=== PATIENT | male | born 1945 | race Caucasian/White ===

== ENCOUNTER 2018-05-16 13:30 | Observation (INO) ==
--- NOTE | 2018-05-16 13:38 | Emergency Department Note ---
Disposition Clinical Impression: Dyspnea, S/P CABG x 3 Disposition: Admitted As Inpatient Condition: Good General Adult HPI - General Chief complaint: ED Shortness of Breath/Dyspnea Stated complaint: INESSA/Tired Time Seen by Provider: 05/16/18 13:36 Nursing Notes Reviewed: Yes Vital Signs Reviewed: Yes - History of Present Illness Pain Scale: 0 - Related Data Home Medications Medication Instructions Recorded Confirmed Clopidogrel [Plavix] 75 mg PO DAILY 12/21/15 05/16/18 Febuxostat [Uloric] 40 mg PO DAILY 12/21/15 05/16/18 Insulin Glargine,Hum.rec.anlog 30 units SQ HS 12/21/15 05/16/18 [Lantus Solostar] LORazepam [Ativan] 0.5 mg PO TID PRN 12/21/15 05/16/18 Lisinopril [Zestril] 20 mg PO DAILY #0 12/21/15 05/16/18 Lovastatin 40 mg PO DAILY #0 12/21/15 05/16/18 Metoprolol [Lopressor] 100 mg PO BID 12/21/15 05/16/18 cloNIDine HCl [CloNIDine HCl] 0.1 mg PO DAILY PRN 12/21/15 05/16/18 Multivit-Min/FA/Lycopen/Lutein 1 each PO DAILY 02/06/16 05/16/18 [Centrum Silver Tablet] Docusate [Colace] 100 mg PO DAILY 03/31/16 05/16/18 Amlodipine Besylate 10 mg PO DAILY 08/03/17 05/16/18 Nitroglycerin [Nitrostat] 0.4 mg SL Q5M PRN 08/03/17 05/16/18 Aspirin Enteric Coated [Aspirin EC] 81 mg PO DAILY 05/16/18 05/16/18 Cholecalciferol (D-3) [Vitamin D] 1,000 unit PO DAILY 05/16/18 05/16/18 Colchicine [Colcrys] 0.6 mg PO BID PRN 05/16/18 05/16/18 Allergies Allergy/AdvReac Type Severity Reaction Status Date / Time allopurinol AdvReac Anxiety Verified 05/16/18 13:33 Amoxicillin AdvReac Anxiety Verified 05/16/18 13:33 atorvastatin [From Lipitor] AdvReac Muscle Pain Verified 05/16/18 13:33 levofloxacin AdvReac Anxiety Verified 05/16/18 13:33 rosuvastatin [From Crestor] AdvReac Muscle Pain Verified 05/16/18 13:33 tramadol AdvReac Anxiety Verified 05/16/18 13:33 Past Medical History - Past Medical History Medical history: Reports: diabetes, hypertension, renal disease, other Surgical history: Reports: angioplasty/stent, carotid endarterectomy, cataract, coronary bypass (CABG), other Psychiatric history: Reports: no psych history - Social History Smoking Status: Never smoker Smokeless Tobacco Status: No Alcohol use: Reports: rarely Drug use: Reports: none Course Vital Signs Temperature 97.4 F L 05/16/18 13:32 Pulse Rate 66 05/16/18 13:32 Respiratory Rate 18 05/16/18 13:32 Blood Pressure 174/72 05/16/18 13:32 O2 Sat by Pulse Oximetry 98 05/16/18 13:32 Temperature 97.4 F L 05/16/18 13:38 Pulse Rate 60 05/16/18 15:23 Respiratory Rate 16 05/16/18 15:23 Blood Pressure 125/63 05/16/18 15:23 O2 Sat by Pulse Oximetry 98 05/16/18 15:23 Oxygen Delivery Oxygen Delivery Room Air Medical Decision Making - MDM Narrative Medical decision making narrative: This documentation is done with the assistance of Dragon dictation. Despite efforts made to ensure accuracy, there may be inaccuracies in card scraper or spelling and typographical errors. I examined this patient and my medical decision-making was reviewed with the Resident Physician. I agree with the documented findings, disposition and treatment plan as described except to the extent set forth below. Patient seen and evaluated on arrival with Dr. Pak and myself, I agree with her evaluation and management plan, I supervised care the patient's stay. She presents today with dyspnea and symptoms of congestive heart failure. More tired than usual also hypertensive [facility] and they sent him here. We will order a workup and most likely admission. Chest X-Ray 05/16/18 13:40 IMPRESSION: No acute process. D/ / Joaquim Rasheed MD / Joaquim Rasheed MD Interpreting Provider: Joaquim Rasheed MD 1600 hrs. were negative and bring her into the hospital for dyspnea and pulmonary edema. - Lab Data Result diagrams: 05/16/18 13:53 05/16/18 13:53 Lab Results 05/16/18 05/16/18 05/16/18 Range/Units 13:53 13:53 13:53 WBC 6.7 (4.3-11.1) K/mcL RBC 4.02 L (4.19-5.50) M/mcL Hgb 12.8 L (12.9-16.9) g/dL Hct 36.7 L (37.5-50.1) % MCV 91.3 (83.0-100.0) fL MCH 31.8 (28.0-33.3) pg MCHC 34.9 (31.6-35.5) g/dL RDW 13.3 (11.5-14.5) % Plt Count 190 (140-400) K/mcL MPV 9.7 (9.4-12.4) fL Immature Gran % 0.6 (0-4) % Seg Neutrophils % 65.6 % Lymphocytes % 20.9 % Monocytes % 10.8 % Eosinophils % 1.5 % Basophils % 0.6 % Neutrophils # 4.4 (1.6-8.9) K/mcL Lymphocytes # 1.4 (0.6-4.6) K/mcL Monocytes # 0.7 (0.0-1.3) K/mcL Eosinophils # 0.1 (0.0-0.6) K/mcL Basophils # 0.0 (0.0-0.2) K/mcL Sodium 130 L (136-145) mEq/L Potassium 4.9 (3.5-5.1) mEq/L Chloride 98 (98-107) mEq/L Carbon Dioxide 25 (23-29) mEq/L BUN 23 (8-23) mg/dL Creatinine 1.48 H (0.70-1.30) mg/dL Est GFR ( Amer) 56 L (> 60) Est GFR (Non-Af Amer) 47 L (> 60) BUN/Creatinine Ratio 16 (6-26) Glucose 211 H (70-105) mg/dL Calculated Osmolality 280 (280-300) Calcium 9.7 (8.6-10.3) mg/dL Troponin I < 0.03 (< 0.04) ng/mL B-Natriuretic Peptide 209 H (Less than 100) pg/mL Attestation Statement - Attestation Attestation: This documentation is done with the assistance of Dragon dictation. Despite efforts made to ensure accuracy, there may be inaccuracies in card scraper or spelling and typographical errors. I examined this patient and my medical decision-making was reviewed with the Resident Physician. I agree with the documented findings, disposition and treatment plan as described except to the extent set forth below.
--- NOTE | 2018-05-16 13:46 | Emergency Department Note ---
Disposition Clinical Impression: S/P CABG x 3 Dyspnea Qualifiers: Dyspnea type: unspecified Qualified Code(s): R06.00 - Dyspnea, unspecified Disposition: Admitted As Inpatient Condition: Good Referrals: Richard Kasper MD [Primary Care Provider] - Forms: ED Satisfaction Letter Time of Disposition: 15:33 General Adult HPI - General Chief complaint: ED Shortness of Breath/Dyspnea Stated complaint: INESSA/Tired Time Seen by Provider: 05/16/18 13:36 Source: patient Mode of arrival: ambulatory Limitations: no limitations Nursing Notes Reviewed: Yes Vital Signs Reviewed: Yes - History of Present Illness HPI Narrative: 72-year-old male with significant past medical history of chronic kidney disease , diabetes, hypertension, hyperlipidemia presented to the emergency part chief complaint of difficulty in breathing. Patient has no history of asthma or COPD. Patient states for the past month he is not having increased difficulty in breathing. At first it was only exertional and now it is even at rest at times. Patient denies any fevers or chest pain. Patient does have a history of bypass in March 2016. Patient states today he went to his nephrologists office and she was concerned for his increased difficulty in breathing and sent him here for further evaluation. Pain Scale: 0 - Related Data Home Medications Medication Instructions Recorded Confirmed Clopidogrel [Plavix] 75 mg PO DAILY 12/21/15 05/16/18 Febuxostat [Uloric] 40 mg PO DAILY 12/21/15 05/16/18 Insulin Glargine,Hum.rec.anlog 30 units SQ HS 12/21/15 05/16/18 [Lantus Solostar] LORazepam [Ativan] 0.5 mg PO TID PRN 12/21/15 05/16/18 Lisinopril [Zestril] 20 mg PO DAILY #0 12/21/15 05/16/18 Lovastatin 40 mg PO DAILY #0 12/21/15 05/16/18 Metoprolol [Lopressor] 100 mg PO BID 12/21/15 05/16/18 cloNIDine HCl [CloNIDine HCl] 0.1 mg PO DAILY PRN 12/21/15 05/16/18 Multivit-Min/FA/Lycopen/Lutein 1 each PO DAILY 02/06/16 05/16/18 [Centrum Silver Tablet] Docusate [Colace] 100 mg PO DAILY 03/31/16 05/16/18 Amlodipine Besylate 10 mg PO DAILY 08/03/17 05/16/18 Nitroglycerin [Nitrostat] 0.4 mg SL Q5M PRN 08/03/17 05/16/18 Aspirin Enteric Coated [Aspirin EC] 81 mg PO DAILY 05/16/18 05/16/18 Cholecalciferol (D-3) [Vitamin D] 1,000 unit PO DAILY 05/16/18 05/16/18 Colchicine [Colcrys] 0.6 mg PO BID PRN 05/16/18 05/16/18 Allergies Allergy/AdvReac Type Severity Reaction Status Date / Time allopurinol AdvReac Anxiety Verified 05/16/18 13:33 Amoxicillin AdvReac Anxiety Verified 05/16/18 13:33 atorvastatin [From Lipitor] AdvReac Muscle Pain Verified 05/16/18 13:33 levofloxacin AdvReac Anxiety Verified 05/16/18 13:33 rosuvastatin [From Crestor] AdvReac Muscle Pain Verified 05/16/18 13:33 tramadol AdvReac Anxiety Verified 05/16/18 13:33 All systems ED: reviewed and negative except as stated. Constitutional: Denies: fever, chills Eyes: Reports: as per HPI ENT ED: Reports: as per HPI Cardiovascular: Denies: chest pain, palpitations Respiratory: Reports: dyspnea. Denies: cough, wheezes, hemoptysis Gastrointestinal: Denies: abdominal pain, nausea, vomiting Genitourinary: Reports: as per HPI Musculoskeletal: Reports: as per HPI Integumentary: Denies: rash, abrasion Neurological: Denies: weakness, numbness, paresthesias Psychiatric: Reports: as per HPI Endocrine: Reports: as per HPI Hematological/Lymphatic: Reports: as per HPI Allergic/Immunologic: Reports: as per HPI Past Medical History - Past Medical History Attestation: Yes The following information was validated with the patient. Medical history: Reports: diabetes, hypertension, renal disease, other Surgical history: Reports: angioplasty/stent, carotid endarterectomy, cataract, coronary bypass (CABG), other Psychiatric history: Reports: no psych history - Social History Smoking Status: Never smoker Smokeless Tobacco Status: No Alcohol use: Reports: rarely Drug use: Reports: none Physical Exam - General Limitations: no limitations General appearance: alert, in no apparent distress - Head Head exam: atraumatic, normocephalic, normal inspection - Eye Eye exam: Present: normal appearance. Absent: scleral icterus, conjunctival injection - ENT ENT exam: normal exam, mucous membranes moist - Neck Neck exam: Present: normal inspection, full ROM. Absent: tenderness, meningismus - Chest Chest inspection: Present: normal inspection, symmetric chest wall rise. Absent : tenderness, rash - Respiratory Respiratory exam: Present: normal lung sounds bilaterally. Absent: respiratory distress, wheezes - Cardiovascular Cardiovascular exam: Present: regular rate, normal rhythm, normal heart sounds - Abdominal Exam Abdominal exam: Present: soft, Non-Tender. Absent: distention, guarding, rebound - Extremities Exam Extremities exam: Present: normal inspection, full ROM - Neurological Exam Neurological exam: Present: alert, oriented X3 - Psychiatric Psychiatric exam: Present: normal affect, normal mood - Skin Skin exam: Present: warm, intact Course Course Narrative: 72-year-old male coming in with chief complaint of difficulty in breathing. Progressive for the past month. Patient has cardiac history. Patient's physical exam benign. He is alert and oriented times3 in the room with stable vital signs. We will perform cardiac workup along with chest x-ray. We will obtain an EKG and troponin. Disposition most likely admission but pending results. Patient agrees with this plan. - Reevaluation(s) Reevaluation #1: Patient's laboratory analysis benign. Due to the patient's elevated heart score an increase in difficulty breathing over the past few days we will plan to admit him for further evaluation. Patient is alert and oriented 3 and room with stable vital signs. He agrees with this plan. I spoke with the hospitalist on-call Dr. Sal who agrees to accept the patient at this time. Vital Signs Temperature 97.4 F L 05/16/18 13:32 Pulse Rate 66 05/16/18 13:32 Respiratory Rate 18 05/16/18 13:32 Blood Pressure 174/72 05/16/18 13:32 O2 Sat by Pulse Oximetry 98 05/16/18 13:32 Temperature 97.4 F L 05/16/18 13:38 Pulse Rate 60 05/16/18 15:23 Respiratory Rate 16 05/16/18 15:23 Blood Pressure 125/63 05/16/18 15:23 O2 Sat by Pulse Oximetry 98 05/16/18 15:23 Oxygen Delivery Oxygen Delivery Room Air Medical Decision Making - Lab Data Result diagrams: 05/16/18 13:53 05/16/18 13:53 Lab Results 05/16/18 05/16/18 05/16/18 Range/Units 13:53 13:53 13:53 WBC 6.7 (4.3-11.1) K/mcL RBC 4.02 L (4.19-5.50) M/mcL Hgb 12.8 L (12.9-16.9) g/dL Hct 36.7 L (37.5-50.1) % MCV 91.3 (83.0-100.0) fL MCH 31.8 (28.0-33.3) pg MCHC 34.9 (31.6-35.5) g/dL RDW 13.3 (11.5-14.5) % Plt Count 190 (140-400) K/mcL MPV 9.7 (9.4-12.4) fL Immature Gran % 0.6 (0-4) % Seg Neutrophils % 65.6 % Lymphocytes % 20.9 % Monocytes % 10.8 % Eosinophils % 1.5 % Basophils % 0.6 % Neutrophils # 4.4 (1.6-8.9) K/mcL Lymphocytes # 1.4 (0.6-4.6) K/mcL Monocytes # 0.7 (0.0-1.3) K/mcL Eosinophils # 0.1 (0.0-0.6) K/mcL Basophils # 0.0 (0.0-0.2) K/mcL Sodium 130 L (136-145) mEq/L Potassium 4.9 (3.5-5.1) mEq/L Chloride 98 (98-107) mEq/L Carbon Dioxide 25 (23-29) mEq/L BUN 23 (8-23) mg/dL Creatinine 1.48 H (0.70-1.30) mg/dL Est GFR ( Amer) 56 L (> 60) Est GFR (Non-Af Amer) 47 L (> 60) BUN/Creatinine Ratio 16 (6-26) Glucose 211 H (70-105) mg/dL Calculated Osmolality 280 (280-300) Calcium 9.7 (8.6-10.3) mg/dL Troponin I < 0.03 (< 0.04) ng/mL B-Natriuretic Peptide 209 H (Less than 100) pg/mL - EKG Data EKG #1 EKG attestation: Yes I reviewed and interpreted this EKG. EKG results narrative: Sinus rhythm first-degree AV block. 60 beats for minute. IN interval 304, QRS 94, QTC 404. No signs of acute ST segment elevation or ischemia. Compared to previous EKG completed on 12/14/2017 no significant changes noted.
[2018-05-16 14:09] LABS: Basophils % 0.6 %; Eosinophils # 0.1 K/mcL (0.0-0.6); Eosinophils % 1.5 %; Hematocrit 36.7 % (37.5-50.1); Hemoglobin 12.8 g/dL (12.9-16.9); Immature Granulocytes % 0.6 % (0-4); Lymphocytes # 1.4 K/mcL (0.6-4.6); Lymphocytes % 20.9 %; Mean Corpuscular HGB Conc 34.9 g/dL (31.6-35.5); Mean Corpuscular Hemoglobin 31.8 pg (28.0-33.3); Mean Corpuscular Volume 91.3 fL (83.0-100.0); Mean Platelet Volume 9.7 fL (9.4-12.4); Monocytes # 0.7 K/mcL (0.0-1.3); Monocytes % 10.8 %; Neutrophils # 4.4 K/mcL (1.6-8.9); Platelet Count 190 K/mcL (140-400); Red Blood Count 4.02 M/mcL (4.19-5.50); Red Cell Distribution Width 13.3 % (11.5-14.5); Segmented Neutrophils % 65.6 %
[2018-05-16 14:24] LABS: BUN/Creatinine Ratio 16 (6-26); Blood Urea Nitrogen 23 mg/dL (8-23); Calcium 9.7 mg/dL (8.6-10.3); Carbon Dioxide 25 mEq/L (23-29); Chloride 98 mEq/L (98-107); Glucose 211 mg/dL (70-105); Osmolality,Calculated 280 (280-300); Potassium 4.9 mEq/L (3.5-5.1); Sodium 130 mEq/L (136-145); eGFR For Non-African Americans 47 (> 60)
[2018-05-16 14:25] LABS: Troponin I < 0.03 ng/mL (< 0.04)
[2018-05-16] MEDS ORDERED: Acetaminophen 325 MG TABLET PO PRN (16:15)
[2018-05-16] MEDS ORDERED: Naloxone 0.4 MG/ML INJ IVP PRN (16:15)
[2018-05-16] MEDS ORDERED: traMADol 50 MG TABLET PO PRN (16:15)
[2018-05-16] MEDS ORDERED: Colchicine 0.6 MG TABLET PO PRN (16:29)
[2018-05-16] MEDS ORDERED: *HR* LORazepam 0.5 MG TABLET PO PRN (16:29)
[2018-05-16] MEDS ORDERED: cloNIDine HCl 0.1 MG TABLET PO PRN (16:29)
[2018-05-16] MEDS ORDERED: Nitroglycerin 0.4 MG TAB.SUBL SL PRN (16:29)
[2018-05-16] MEDS ORDERED: Dextrose Gel 15 GM/37.5 ML TUBE PO PRN ×2 (16:31)
[2018-05-16] MEDS ORDERED: D5% in Water 1,000 ML IVC PRN (16:31)
[2018-05-16] MEDS ORDERED: *HR* Dextrose 50 % in Water (Syg) 50 ML SYRINGE IVP PRN (16:31)
--- NOTE | 2018-05-16 16:44 | Internal Med History&Physical ---
<Gita Hawkins - Last Filed: 05/16/18 16:38> Date of Encounter: 05/16/18 Time of Encounter: 16:38 Internal Medicine - H&P: HPI Admitted From: Home Plans for Post Hospital Care: Home History of present illness: Mr. Yu is a 72-year-old male with significant past medical history of chronic kidney disease, diabetes, hypertension, hyperlipidemia, CAD s/p PTCA with stent and CABG presented to the emergency part chief complaint of difficulty in breathing. Patient has no history of asthma or COPD. Patient states for the past several months he was having increased difficulty in breathing. At first it was only exertional and now it is even at rest at times. Patient denies any fevers or chest pain. Patient does have a history of bypass in March 2016. Patient states today he went to his nephrologists office and she was concerned for his increased difficulty in breathing and sent him here for further evaluation. Patient denies fever, chills, or night sweats. He has no chest pain, palpitation, or syncope. At the ED, his vital signs were stable although episodic high blood pressure was noticed. Labs revealed slightly elevated BNP and creatinine. Chest x-ray unremarkable. EKG revealed ST_T depression on leads I and avL, first-degree AV block. Due to his concerning symptoms, patient will be admitted as observation for further evaluation. Past Med Surg Social Fam HX - Past Medical History Medical history: diabetes, hypertension, renal disease, other Additional medical history: ckd 3 Psychiatric history: no psych history - Past Surgical History Surgical History: angioplasty/stent, carotid endarterectomy, cataract, coronary bypass (CABG), other Additional surgical history: Back surgery, cardiac stent x1, left CEA - Social History Smoking Status: Never smoker Smokeless Tobacco Status: No Alcohol use: rarely Drug use: none - Family History Father Adopted: No Family Member Ethnicity: Non- Living Status: Still Living Hx Family Cardiac Disorders: No Hx Family Respiratory Disorders: No Hx Family Cancer: Yes (grandmother bone cancer/breast) Hx Family GI Disorders: No Hx Family Endocrine Disorder: Yes (brother dm) Hx Family Neuromuscular Disorders: No Hx Family Neurologic Disorders: No Hx Family HEENT Disorders: No Hx Family Autoimmune Disorders: No Internal Medicine - H&P: Meds Clopidogrel [Plavix] 75 mg PO DAILY 12/21/15 [History] Febuxostat [Uloric] 40 mg PO DAILY 12/21/15 [History] LORazepam [Ativan] 0.5 mg PO TID PRN 12/21/15 [History] Lisinopril [Zestril] 20 mg PO DAILY #0 12/21/15 [History] Lovastatin 40 mg PO DAILY #0 12/21/15 [History] Metoprolol [Lopressor] 100 mg PO BID 12/21/15 [History] cloNIDine HCl [CloNIDine HCl] 0.1 mg PO DAILY PRN 12/21/15 [History] Multivit-Min/FA/Lycopen/Lutein [Centrum Silver Tablet] 1 each PO DAILY 02/06/16 [History] Docusate [Colace] 100 mg PO DAILY 03/31/16 [History] Amlodipine Besylate 10 mg PO DAILY 08/03/17 [History] Nitroglycerin [Nitrostat] 0.4 mg SL Q5M PRN 08/03/17 [History] Aspirin Enteric Coated [Aspirin EC] 81 mg PO DAILY 05/16/18 [History] Cholecalciferol (D-3) [Vitamin D] 1,000 unit PO DAILY 05/16/18 [History] Colchicine [Colcrys] 0.6 mg PO BID PRN 05/16/18 [History] Insulin Glargine,Hum.rec.anlog [Basaglar Kwikpen U-100] 34 unit SQ DAILY [History] 3 Allergy/AdvReac Type Severity Reaction Status Date / Time allopurinol AdvReac Anxiety Verified 05/16/18 13:33 Amoxicillin AdvReac Anxiety Verified 05/16/18 13:33 atorvastatin [From Lipitor] AdvReac Muscle Pain Verified 05/16/18 13:33 levofloxacin AdvReac Anxiety Verified 05/16/18 13:33 rosuvastatin [From Crestor] AdvReac Muscle Pain Verified 05/16/18 13:33 tramadol AdvReac Anxiety Verified 05/16/18 13:33 All Systems PM: A 10-system review of systems was performed and is negative for pertinent findings except as documented above in the HPI. Review of systems: REVIEW OF SYSTEMS: CONSTITUTIONAL: No weight loss, fever, chills, weakness or fatigue. HEENT: Eyes: No visual loss, blurred vision, double vision or yellow sclerae. Ears, Nose, Throat: No hearing loss, sneezing, congestion, runny nose or sore throat. SKIN: No rash or itching. CARDIOVASCULAR: see HPI. RESPIRATORY: No shortness of breath, cough or sputum. GASTROINTESTINAL: No anorexia, nausea, vomiting or diarrhea. No abdominal pain or blood. GENITOURINARY: No dysuria, urgency, or frequency. NEUROLOGICAL: No headache, dizziness, syncope, paralysis, ataxia, numbness or tingling in the extremities. No change in bowel or bladder control. MUSCULOSKELETAL: No muscle, back pain, joint pain or stiffness. HEMATOLOGIC: No anemia, bleeding or bruising. LYMPHATICS: No enlarged nodes. No history of splenectomy. PSYCHIATRIC: No history of depression or anxiety. ENDOCRINOLOGIC: No reports of sweating, cold or heat intolerance. No polyuria or polydipsia. - Constitutional Vitals: Temp Pulse Resp BP Pulse Ox 97.4 F L 60 16 125/63 98 05/16/18 13:38 05/16/18 15:23 05/16/18 15:23 05/16/18 15:23 05/16/18 15:23 General appearance: Present: A&O X 3 Exam: PHYSICAL EXAMINATION: GENERAL APPEARANCE: The patient is alert, oriented and in no acute distress. HEENT: Head is normocephalic. The sinuses are nontender. Pupils are equal and reactive. The nares are patent. Oropharynx clear without lesions. NECK: Supple without lymphadenopathy. HEART: Regular rate and rhythm. LUNGS: No crackles or wheezes are heard. ABDOMEN: Soft, nontender, nondistended with good bowel sounds heard. Inguinal area is normal. EXTREMITIES: Without cyanosis, clubbing or edema. NEUROLOGICAL: Gross nonfocal. SKIN: Warm and dry without any rash. Internal Med - H&P Results - Labs CBC & Chem 7: 05/16/18 13:53 05/16/18 13:53 - Assessment and plan (1) Dyspnea Current Visit: Yes Status: Acute Assessment and plan: 72-year-old male with past medical history of CAD status post stent and CABG, CK D, hypertension, hyperlipidemia, and diabetes presented with several months history of generalized weakness and dyspnea. He had extensive cardiac history including several times of PCI with stent and CABG. last LHC in 2016 revealed patent three-vessel bypass grafts. Stress test in 2016 negative for ischemia. His recent echo in 12/2017 revealed preserved ejection fraction. She does not have history of COPD/asthma/other underlying pulmonary disease. - Etiology undetermined at this point. Chest x-ray normal. - BNP slightly elevated, however, patient is not volume overloaded on physical exam. HR 60, EKG first-degree AV block, ST-T depression in I and avL. troponin negative. Recent echo in December revealed preserved ejection fraction, no reported diastolic dysfunction, no valvular disease. Given history of extensive cardiac disease, heart failure either HFrEF or HFpEF was suspected. We will repeat stress echocardiogram in the morning. stress test if indicated. Consult cardiology. - We will ruled out endocrine/metabolic disorders including hypothyroidism, vitamin B-12 deficiency. Vitamin D level was normal in April. A1c 7.5 in April. Qualifiers: Dyspnea type: unspecified Qualified Code(s): R06.00 - Dyspnea, unspecified (2) CAD (coronary artery disease) Current Visit: No Status: Chronic Assessment and plan: - same as above, may need stress test to rule out ischemia given the abnormality on EKG. - continue asa and Plavix. continue BB and ACEI. Qualifiers: Coronary Disease-Associated Artery/Lesion type: [place] artery [place] vs. transplanted heart: [place] heart Associated angina: with unspecified angina Qualified Code(s): I25.119 - Atherosclerotic heart disease of [place] coronary artery with unspecified angina pectoris (3) CKD (chronic kidney disease) stage 3, GFR 30-59 ml/min Current Visit: No Status: Chronic Assessment and plan: Creatinine at baseline, avoid nephrotoxic agent, continue monitoring. (4) DMII (diabetes mellitus, type 2) Current Visit: No Status: Chronic Assessment and plan: Recent A1c 7.5, continue home basal insulin, started on SSI. Qualifiers: Diabetes mellitus chcf insulin use: unspecified chcf insulin use status Diabetes mellitus complication status: with circulatory complication Diabetes mellitus complication detail: with peripheral angiopathy without gangrene Qualified Code(s): E11.51 - Type 2 diabetes mellitus with diabetic peripheral angiopathy without gangrene (5) Hyperlipidemia Current Visit: Yes Status: Acute Assessment and plan: continue satins. Qualifiers: Hyperlipidemia type: pure hypercholesterolemia Qualified Code(s): E78.00 - Pure hypercholesterolemia, unspecified; E78.0 - Pure hypercholesterolemia (6) Hypertension Current Visit: No Status: Chronic Assessment and plan: Very labile BP, may decrease BB dose due to weakness and I degree AVB. Qualifiers: Hypertension type: essential hypertension Qualified Code(s): I10 - Essential (primary) hypertension (7) DVT prophylaxis Current Visit: Yes Status: Acute Assessment and plan: heparin sq. (8) Gout Current Visit: No Status: Chronic Assessment and plan: Uric acid recent 6.0, continue febuxostat and clchcine. Qualifiers: Gout site: unspecified site Gout etiology: unspecified cause Chronicity: chronic Presence of tophus: without tophus Qualified Code(s): M1A.9XX0 - Chronic gout, unspecified, without tophus (tophi) - Time Spent With Patient Total time spent is greater than 50% in coordination of care (as documented) at patient's floor/unit and/or counseling patient: Greater than 35 minutes <Alistair Sal - Last Filed: 05/16/18 20:31> Date of Encounter: 05/16/18 Internal Medicine - H&P: HPI History of present illness: Mr. Yu is a 72 year old male Past Med Surg Social Fam HX - Family History Father Adopted: No Family Member Ethnicity: Non- Living Status: Still Living Age at : 70 Hx Family Cardiac Disorders: No Hx Family Respiratory Disorders: No Hx Family Cancer: Yes (grandmother bone cancer/breast) Hx Family GI Disorders: No Hx Family Endocrine Disorder: Yes (brother dm) Hx Family Neuromuscular Disorders: No Hx Family Neurologic Disorders: No Hx Family HEENT Disorders: No Hx Family Autoimmune Disorders: No Mother Living Status: Hx Family Respiratory Disorders: Yes (TB) All Systems PM: A 10-system review of systems was performed and is negative for pertinent findings except as documented above in the HPI. - Constitutional Vitals: Temp Pulse Resp BP Pulse Ox 97.6 F 63 16 146/72 99 05/16/18 18:44 05/16/18 18:44 05/16/18 18:44 05/16/18 18:44 05/16/18 18:44 Internal Med - H&P Results - Labs CBC & Chem 7: 05/16/18 13:53 05/16/18 13:53 Labs: Cardiac Enzymes 05/16/18 Range/Units 19:12 Troponin I < 0.03 (< 0.04) ng/mL - Attending Attestation Discussed with CARROLL and agree with assessment and plan as above Consult cardiology for management of heart failure - Assessment and plan (1) CKD (chronic kidney disease) stage 3, GFR 30-59 ml/min Current Visit: No Status: Chronic (2) CAD (coronary artery disease) Current Visit: No Status: Chronic Qualifiers: Coronary Disease-Associated Artery/Lesion type: [place] artery [place] vs. 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 Diabetes mellitus complication status: with circulatory complication Diabetes mellitus complication detail: with peripheral angiopathy without gangrene Qualified Code(s): E11.51 - Type 2 diabetes mellitus with diabetic peripheral angiopathy without gangrene (4) DVT prophylaxis Current Visit: Yes Status: Acute (5) Hypertension Current Visit: No Status: Chronic Qualifiers: Hypertension type: essential hypertension Qualified Code(s): I10 - Essential (primary) hypertension (6) Dyspnea Current Visit: Yes Status: Acute Qualifiers: Dyspnea type: unspecified Qualified Code(s): R06.00 - Dyspnea, unspecified (7) Hyperlipidemia Current Visit: Yes Status: Acute Qualifiers: Hyperlipidemia type: pure hypercholesterolemia Qualified Code(s): E78.00 - Pure hypercholesterolemia, unspecified; E78.0 - Pure hypercholesterolemia (8) Gout Current Visit: No Status: Chronic Qualifiers: Gout site: unspecified site Gout etiology: unspecified cause Chronicity: chronic Presence of tophus: without tophus Qualified Code(s): M1A.9XX0 - Chronic gout, unspecified, without tophus (tophi) - Time Spent With Patient Total time spent is greater than 50% in coordination of care (as documented) at patient's floor/unit and/or counseling patient:
[2018-05-16] MEDS: *HR* Heparin 5,000 UNIT/ML VIAL SQ SCH (17:54)
[2018-05-16] MEDS ORDERED: Insulin DETEMIR 100 UNIT/ML X5UNITS SQ SCH (21:00)
[2018-05-16] MEDS: Insulin LISPRO 300 UNITS/3 ML VIAL SQ SCH (21:17)
[2018-05-17 02:18] LABS: Basophils % 0.7 %; Eosinophils # 0.2 K/mcL (0.0-0.6); Eosinophils % 2.6 %; Hematocrit 36.7 % (37.5-50.1); Hemoglobin 12.8 g/dL (12.9-16.9); Immature Granulocytes % 0.7 % (0-4); Lymphocytes # 1.6 K/mcL (0.6-4.6); Lymphocytes % 25.9 %; Mean Corpuscular HGB Conc 34.9 g/dL (31.6-35.5); Mean Corpuscular Hemoglobin 32.3 pg (28.0-33.3); Mean Corpuscular Volume 92.7 fL (83.0-100.0); Mean Platelet Volume 9.8 fL (9.4-12.4); Monocytes # 0.8 K/mcL (0.0-1.3); Neutrophils # 3.5 K/mcL (1.6-8.9); Platelet Count 182 K/mcL (140-400); Red Blood Count 3.96 M/mcL (4.19-5.50); Red Cell Distribution Width 13.2 % (11.5-14.5); Segmented Neutrophils % 57.1 %
[2018-05-17 02:33] LABS: Magnesium 1.9 mg/dL (1.6-2.6); Phosphorous 3.7 mg/dL (2.7-4.5)
[2018-05-17 02:34] LABS: Albumin/Globulin Ratio 1.3 (1.1-2.2); Bilirubin,Total 0.6 mg/dL (0.3-1.0); Calcium 9.6 mg/dL (8.6-10.3); Potassium 4.2 mEq/L (3.5-5.1)
[2018-05-17 02:59] LABS: Vitamin B12 437 pg/mL (250-1100)
[2018-05-17 03:05] LABS: Folate > 22.3 ng/mL (3.0-16.0)
[2018-05-17] MEDS: *HR* Heparin 5,000 UNIT/ML VIAL SQ SCH ×2 (06:19→17:54)
[2018-05-17] MEDS: Insulin DETEMIR 100 UNIT/ML X5UNITS SQ SCH (06:28)
--- NOTE | 2018-05-17 07:13 | Electrocardiograph Report ---
[facility] Test Date: 2018-05-16 Pat Name: Fahad Yu Department: 104 Room: 3B32 Gender: M Tool Maintenance Technician: RITA : [id number] Requested By: Galen Solorzano Order Number: [id number] Reading MD: Bob Grimm Measurements Intervals [place] Rate: 63 P: 33 [place]: 304 QRS: 87 QRSD: 94 T: 71 QT: 398 QTc: 404 Interpretive Statements SINUS RHYTHM WITH FIRST DEGREE AV BLOCK NONSPECIFIC ST & T-WAVE ABNORMALITY Electronically Signed On 05-17-2018 7:11:35 EDT by Bob Grimm
[2018-05-17] MEDS: Aspirin Enteric Coated 81 MG Tablet PO SCH (08:28)
[2018-05-17] MEDS: Insulin LISPRO 300 UNITS/3 ML VIAL SQ SCH ×4 (08:28→21:40)
[2018-05-17] MEDS: Cholecalciferol (D-3) 1,000 UNIT TABLET PO SCH (08:30)
[2018-05-17] MEDS: Multivit/Ca/Min/Fe/FA 1 TAB TABLET PO SCH (08:30)
[2018-05-17] MEDS ORDERED: Regadenoson 0.4 MG/5 ML SYRINGE IVP ONE (09:18)
[2018-05-17] MEDS: Lisinopril 20 MG TABLET PO SCH (11:33)
[2018-05-17] MEDS: amLODIPine 5 MG TABLET PO SCH (11:33)
[2018-05-17] MEDS: (Febuxostat [Uloric] 40 MG) PO SCH (11:34)
--- NOTE | 2018-05-17 15:45 | Discharge Summary ---
- NOTES TO OUTPATIENT PROVIDER Notes to Outpatient Provider: Exertional dyspnea, lack of energy. ACS ruled out , no metabolic abnormality; outpatient Cardiology f/up; Orders not resulted at time of discharge: Pending orders 05/17/18 08:04 NM roderick perf SPECT multi [NM] Routine EV limited echocardiogram Routine Date of Encounter: 05/17/18 Time of Encounter: 15:43 - Discharge Diagnosis (1) Dyspnea Priority: Primary Status: Acute Qualifiers: Dyspnea type: dyspnea on exertion Qualified Code(s): R06.09 - Other forms of dyspnea (2) CKD (chronic kidney disease) stage 3, GFR 30-59 ml/min Priority: Secondary Status: Chronic (3) CAD (coronary artery disease) Priority: Secondary Status: Chronic Qualifiers: Coronary Disease-Associated Artery/Lesion type: bypass graft [place] vs. transplanted heart: [place] heart Associated angina: with unspecified angina Qualified Code(s): I25.709 - Atherosclerosis of coronary artery bypass graft(s) , unspecified, with unspecified angina pectoris (4) DMII (diabetes mellitus, type 2) Priority: Secondary Status: Chronic Qualifiers: Diabetes mellitus jail insulin use: with jail use Diabetes mellitus complication status: with kidney complications Diabetes mellitus complication detail: with chronic kidney disease Chronic kidney disease stage : stage 3 (moderate) Qualified Code(s): E11.22 - Type 2 diabetes mellitus with diabetic chronic kidney disease; N18.3 - Chronic kidney disease, stage 3 ( moderate); 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 Yu is a 72 year old male with the above medical problems, who was admitted with fatigue, lack of energy and exertional dyspnea. Patient was admitted to rule out anginal equivalent given his extensive cardiac history. Telemetry monitoring and serial troponins were unremarkable. EKG showed nonspecific ST-T wave abnormalities, with no new changes compared to previous EKGs. Thyroid function testing, serum vitamin B12 and folate levels were normal. Patient remained hemodynamically stable. Nuclear stress test was negative for acute ischemia. TTE is pending at this time. He is stable for discharge with outpatient Cardiology f/up, after TTE results. Discharge discussed with: patient, family, nurse - Time Spent with Patient Total time spent providing and/or coordinating discharge services: Greater than 30 minutes (40 min) - Discharge Medications Home Medications: Clopidogrel [Plavix] 75 mg PO DAILY 12/21/15 [History] Febuxostat [Uloric] 40 mg PO DAILY 12/21/15 [History] LORazepam [Ativan] 0.5 mg PO TID PRN 12/21/15 [History] Lisinopril [Zestril] 20 mg PO DAILY #0 12/21/15 [History] Lovastatin 40 mg PO DAILY #0 12/21/15 [History] Metoprolol [Lopressor] 100 mg PO BID 12/21/15 [History] cloNIDine HCl [CloNIDine HCl] 0.1 mg PO DAILY PRN 12/21/15 [History] Multivit-Min/FA/Lycopen/Lutein [Centrum Silver Tablet] 1 each PO DAILY 02/06/16 [History] Docusate [Colace] 100 mg PO DAILY 03/31/16 [History] Amlodipine Besylate 10 mg PO DAILY 08/03/17 [History] Nitroglycerin [Nitrostat] 0.4 mg SL Q5M PRN 08/03/17 [History] Aspirin Enteric Coated [Aspirin EC] 81 mg PO DAILY 05/16/18 [History] Cholecalciferol (D-3) [Vitamin D] 1,000 unit PO DAILY 05/16/18 [History] Colchicine [Colcrys] 0.6 mg PO BID PRN 05/16/18 [History] Insulin Glargine,Hum.rec.anlog [Basaglar Kwikpen U-100] 34 unit SQ DAILY [History] Allergies/Adverse Reactions: 3 Allergy/AdvReac Type Severity Reaction Status Date / Time allopurinol AdvReac Anxiety Verified 05/16/18 13:33 Amoxicillin AdvReac Anxiety Verified 05/16/18 13:33 atorvastatin [From Lipitor] AdvReac Muscle Pain Verified 05/16/18 13:33 levofloxacin AdvReac Anxiety Verified 05/16/18 13:33 rosuvastatin [From Crestor] AdvReac Muscle Pain Verified 05/16/18 13:33 tramadol AdvReac Anxiety Verified 05/16/18 13:33 Date of admission: 05/16/18 15:33 Primary care physician: Richard Kasper MD Discharging clinician: Bouchra Lopez Anticipated date of discharge: 05/17/18 - Constitutional Vitals: Temp Pulse Resp BP Pulse Ox 97.7 F 62 17 151/72 99 05/17/18 11:29 05/17/18 11:29 05/17/18 11:29 05/17/18 11:29 05/17/18 11:29 General appearance: Present: A&O X 3, answers questions appropriately - Cardiovascular Cardiovascular exam: Present: RRR, +S1, +S2. Absent: diastolic murmur, gallop, rubs, systolic murmur - Patient Status Disposition: Home, Self-Care Condition: Good Functional capacity at discharge: independent ambulation Overall status at discharge: patient is progressing back to baseline - Discharge Instructions Follow Up With: Richard Kasper MD [Primary Care Provider] - 05/23/18 10:15 am Additional Instructions: F/up with Cardiology in 2-3 weeks - Diet and Activity Activity: resume usual activities as tolerated Diet: diabetic diet, low fat, low cholesterol, low salt diet
[2018-05-18] MEDS: *HR* Heparin 5,000 UNIT/ML VIAL SQ SCH (06:19)
[2018-05-18] MEDS: Insulin DETEMIR 100 UNIT/ML X5UNITS SQ SCH (06:21)
[2018-05-18 07:34] VITALS: BP 128/76
[2018-05-18] MEDS: Insulin LISPRO 300 UNITS/3 ML VIAL SQ SCH (08:49)
[2018-05-18] MEDS: Cholecalciferol (D-3) 1,000 UNIT TABLET PO SCH (08:51)
[2018-05-18] MEDS: Lisinopril 20 MG TABLET PO SCH (08:52)
[2018-05-18] MEDS: Aspirin Enteric Coated 81 MG Tablet PO SCH (08:52)
[2018-05-18] MEDS: (Febuxostat [Uloric] 40 MG) PO SCH (08:52)
[2018-05-18] MEDS: amLODIPine 5 MG TABLET PO SCH (08:52)
[2018-05-18] MEDS: Multivit/Ca/Min/Fe/FA 1 TAB TABLET PO SCH (08:52)
--- NOTE | 2018-05-18 16:00 | Internal Med Progress Note ---
Hospitalist Progress Note - Encounter Date of Encounter: 05/18/18 Time of Encounter: 10:10 - Subjective Interval History: No new complaints. Awaiting echocardiogram report for discharge. No chest pain or shortness of breath. - Exam Vitals: Temp Pulse Resp BP Pulse Ox 97.9 F 64 18 128/76 96 05/18/18 07:32 05/18/18 08:56 05/18/18 08:56 05/18/18 07:32 05/18/18 07:32 Exam: Awake, alert and oriented, answers appropriately and follows commands Extremities- full ROM, no pedal edema - Assessment and Plan (1) Dyspnea Status: Acute Assessment and Plan: Patient was admitted to rule out anginal equivalent given his extensive cardiac history. Telemetry monitoring and serial troponins were unremarkable. EKG showed nonspecific ST-T wave abnormalities, with no new changes compared to previous EKGs. Thyroid function testing, serum vitamin B12 and folate levels were normal. Nuclear stress test was negative for acute ischemia. TTE shows preserved EF, normal RV structure and function. he is stable for discharge today, with outpatient Cardiology f/up. patient and family agreeable; (2) CKD (chronic kidney disease) stage 3, GFR 30-59 ml/min Status: Chronic (3) CAD (coronary artery disease) Status: Chronic (4) DMII (diabetes mellitus, type 2) Status: Chronic (5) Hypertension Status: Chronic (6) Hyperlipidemia Status: Chronic (7) Gout Status: Chronic - Time Spent with Patient Total time spent is greater than 50% in coordination of care (as documented) at patient's floor/unit and/or counseling patient: Plan of Care Discussed with: patient Internal Medicine: Result - Labs CBC & Chem 7: 05/17/18 01:59 05/17/18 01:59 - Impressions Impressions Echocardiogram Limited Views 05/17/18 08:04 Impressions: LVEF 55-60%. Normal LV chamber size, wall thickness and function. Atypical septal motion consistent with post-operative status. Left Ventricular Wall Motion: Rest Echo Findings All wall segments showed normal motion. Findings: Study Quality * Technically adequate exam. ECG Findings * Normal sinus rhythm. Left Ventricle * LVEF 55-60%. * Normal LV chamber size, wall thickness and function. * Atypical septal motion consistent with post-operative status. Right Ventricle * Normal right ventricular structure and function. Left Atrium * Mildly dilated left atrium. Right Atrium * Mildly dilated right atrium. Consult Discharge Plan - Plan Instructions: Chest Pain (DC), Diabetes Mellitus Type 2 in Adults (DC) Additional Instructions: F/up with Cardiology in 2-3 weeks Referrals: Richard Kasper MD [Primary Care Provider] - 05/23/18 10:15 am (1) Dyspnea Qualifiers: Dyspnea type: dyspnea on exertion Qualified Code(s): R06.09 - Other forms of dyspnea (3) CAD (coronary artery disease) Qualifiers: Coronary Disease-Associated Artery/Lesion type: bypass graft [place] vs. transplanted heart: [place] heart Associated angina: with unspecified angina Qualified Code(s): I25.709 - Atherosclerosis of coronary artery bypass graft(s) , unspecified, with unspecified angina pectoris (4) DMII (diabetes mellitus, type 2) Qualifiers: Diabetes mellitus detention insulin use: with detention use Diabetes mellitus complication status: with kidney complications Diabetes mellitus complication detail: with chronic kidney disease Chronic kidney disease stage: stage 3 (moderate) Qualified Code(s): E11.22 - Type 2 diabetes mellitus with diabetic chronic kidney disease; N18.3 - Chronic kidney disease, stage 3 ( moderate); Z79.4 - [facility]FP (current) use of insulin (5) Hypertension Qualifiers: Hypertension type: essential hypertension Qualified Code(s): I10 - Essential (primary) hypertension (6) Hyperlipidemia Qualifiers: Hyperlipidemia type: unspecified Qualified Code(s): E78.5 - Hyperlipidemia, unspecified (7) Gout Qualifiers: Gout site: unspecified site Gout etiology: unspecified cause Chronicity: chronic Presence of tophus: without tophus Qualified Code(s): M1A.9XX0 - Chronic gout, unspecified, without tophus (tophi)
== END 2018-05-18 11:50 | disposition home or self-care (01) ==
LOC: EMEROO 13:30 → 3BNU 13:30 → SUATTDRO 15:33 → 3BNU 16:30
PROVIDERS: ADMIT Hospitalist; ATTEND Internal Medicine

== ENCOUNTER 2021-06-01 08:08 | Observation (INO) ==
[2021-06-01 08:57] LABS: Basophils % 0.6 %; Eosinophils # 0.2 K/mcL (0.0-0.6); Eosinophils % 2.5 %; Hematocrit 28.3 % (37.5-50.1); Hemoglobin 9.5 g/dL (12.9-16.9); Immature Granulocytes % 0.3 % (0-4); Lymphocytes # 1.5 K/mcL (0.6-4.6); Lymphocytes % 22.4 %; Mean Corpuscular HGB Conc 33.6 g/dL (31.6-35.5); Mean Corpuscular Hemoglobin 32.4 pg (28.0-33.3); Mean Corpuscular Volume 96.6 fL (83.0-100.0); Mean Platelet Volume 9.4 fL (9.4-12.4); Monocytes # 0.5 K/mcL (0.0-1.3); Monocytes % 7.8 %; Neutrophils # 4.6 K/mcL (1.6-8.9); Platelet Count 164 K/mcL (140-400); Red Blood Count 2.93 M/mcL (4.19-5.50); Red Cell Distribution Width 14.1 % (11.5-14.5); Segmented Neutrophils % 66.4 %; White Blood Count 6.9 K/mcL (4.3-11.1)
[2021-06-01 09:08] LABS: BUN/Creatinine Ratio 14 (6-26); Blood Urea Nitrogen 21 mg/dL (8-23); Carbon Dioxide 23 mEq/L (23-29); Chloride 96 mEq/L (98-107); Glucose 206 mg/dL (70-105); Osmolality,Calculated 271 (280-300); Potassium 4.4 mEq/L (3.5-5.1); Sodium 126 mEq/L (136-145); eGFR For African Americans 55 (> 60); eGFR For Non-African Americans 45 (> 60)
[2021-06-01 09:37] LABS: Troponin I < 0.03 ng/mL (< 0.04)
[2021-06-01 09:53] LABS: Adenovirus Not Detected (Not Detect); Bordetella Pertussis Not Detected (Not Detect); Chlamydophila pneumoniae Not Detected (Not Detect); Coronavirus 229E Not Detected (Not Detect); Coronavirus HKU1 Not Detected (Not Detect); Coronavirus NL63 Not Detected (Not Detect); Coronavirus OC43 Not Detected (Not Detect); Human Metapneumovirus Not Detected (Not Detect); Human Rhinovirus/Enterovirus Not Detected (Not Detect); Influenza A Subtype 2009 H1 Not Detected (Not Detect); Influenza B Not Detected (Not Detect); Mycoplasma pneumoniae Not Detected (Not Detect); Parainfluenza Virus 1 Not Detected (Not Detect); Parainfluenza Virus 2 Not Detected (Not Detect); Parainfluenza Virus 3 Not Detected (Not Detect); Parainfluenza Virus 4 Not Detected (Not Detect); Respiratory Syncytial Virus Not Detected (Not Detect); SARS-CoV-2 Not Detected (Not Detect)
[2021-06-01] MEDS ORDERED: Furosemide 20 MG/2 ML VIAL IVP ONE (10:14)
[2021-06-01 10:23] LABS: Calcium 9.2 mg/dL (8.6-10.3)
[2021-06-01 10:44] LABS: Bilirubin,Urine Negative (Negative); Blood,Urine Negative (Negative); Clarity,Urine Clear (Clear); Color,Urine Light-Yellow (Yellow); Glucose,Urine (UA) Normal (Normal); Ketones,Urine Negative (Negative); Leukocyte Esterase,Urine Negative (Negative); Nitrite,Urine Negative (Negative); PH,Urine 5.5 pH Units (5.0-8.0); Protein,Urine Trace mg/dL (Neg-Trace); Specific Gravity,Urine 1.014 (1.010-1.025); Urobilinogen,Urine Normal (Normal)
[2021-06-01] MEDS ORDERED: Naloxone 0.4 MG/ML INJ IVP PRN (11:39)
[2021-06-01] MEDS ORDERED: Acetaminophen 325 MG TABLET PO PRN (11:39)
[2021-06-01] MEDS ORDERED: Ondansetron 4 MG/2 ML VIAL IVP PRN (11:39)
[2021-06-01] MEDS ORDERED: Perflutren Lipid Microsphere 1.3 ML in 0.9 % Sodium Chloride 8.7 ML IVP PRN (11:49)
[2021-06-01] MEDS ORDERED: Nitroglycerin 0.4 MG TAB.SUBL SL PRN (11:51)
[2021-06-01] MEDS ORDERED: D5% in Water 1,000 ML IVC PRN (11:59)
[2021-06-01] MEDS ORDERED: *HR* Dextrose 50 % in Water (Vial) 50 ML VIAL IVP PRN (11:59)
[2021-06-01] MEDS ORDERED: Dextrose Gel 15 GM/37.5 ML TUBE PO PRN ×2 (11:59)
[2021-06-01 13:21] LABS: INR 1.3; Prothrombin Time 14.7 Seconds (9.4-12.1)
[2021-06-01] MEDS ORDERED: carvediloL 6.25 MG TABLET PO SCH (17:00)
[2021-06-01] MEDS: Insulin LISPRO 300 UNITS/3 ML VIAL SUBQ SCH ×2 (18:03→20:32)
[2021-06-01] MEDS: *HR* Heparin 5,000 UNIT/ML VIAL SQ SCH (18:05)
[2021-06-01] MEDS: Furosemide 20 MG/2 ML VIAL IVP SCH (20:54)
[2021-06-02] MEDS: *HR* Heparin 5,000 UNIT/ML VIAL SQ SCH ×2 (05:01→18:36)
[2021-06-02 06:27] LABS: Basophils # 0.1 K/mcL (0.0-0.2); Basophils % 0.6 %; Eosinophils # 0.2 K/mcL (0.0-0.6); Eosinophils % 1.8 %; Hematocrit 29.3 % (37.5-50.1); Hemoglobin 10.2 g/dL (12.9-16.9); Immature Granulocytes % 0.3 % (0-4); Lymphocytes % 24.1 %; Mean Corpuscular HGB Conc 34.8 g/dL (31.6-35.5); Mean Corpuscular Hemoglobin 32.8 pg (28.0-33.3); Mean Corpuscular Volume 94.2 fL (83.0-100.0); Mean Platelet Volume 9.4 fL (9.4-12.4); Monocytes # 0.8 K/mcL (0.0-1.3); Monocytes % 8.4 %; Platelet Count 190 K/mcL (140-400); Red Blood Count 3.11 M/mcL (4.19-5.50); Red Cell Distribution Width 13.8 % (11.5-14.5); Segmented Neutrophils % 64.8 %; White Blood Count 9.3 K/mcL (4.3-11.1)
[2021-06-02 06:32] LABS: Lymphocytes # 2.2 K/mcL (0.6-4.6)
[2021-06-02 06:55] LABS: Platelet Estimate Normal (Normal)
[2021-06-02 07:16] LABS: Albumin 4.2 g/dL (3.5-5.7); Albumin/Globulin Ratio 1.6 (1.1-2.2); Bilirubin,Total 1.3 mg/dL (0.3-1.0); Globulin 2.7 g/dL (2.4-3.5); Potassium 4.5 mEq/L (3.5-5.1); Total Protein 6.9 g/dL (6.4-8.9)
[2021-06-02] MEDS: Insulin LISPRO 300 UNITS/3 ML VIAL SUBQ SCH ×5 (07:52→20:30)
[2021-06-02] MEDS: Cholecalciferol (D-3) 1,000 UNIT (25MCG) TABLET PO SCH (09:10)
[2021-06-02] MEDS: Folic Acid 1 MG TABLET PO SCH (09:10)
[2021-06-02] MEDS: Furosemide 20 MG/2 ML VIAL IVP SCH ×2 (09:11→20:31)
[2021-06-02] MEDS: Febuxostat [Uloric] 40 MG Tablet PO SCH (09:11)
[2021-06-02] MEDS: Aspirin Enteric Coated 81 MG Tablet PO SCH (09:11)
[2021-06-02 10:49] LABS: Calcium 9.8 mg/dL (8.6-10.3)
[2021-06-02] MEDS: Gabapentin 300 MG CAPSULE PO SCH (20:31)
[2021-06-03 02:58] LABS: Hematocrit 31.8 % (37.5-50.1); Mean Corpuscular HGB Conc 34.6 g/dL (31.6-35.5); Mean Corpuscular Hemoglobin 32.5 pg (28.0-33.3); Mean Corpuscular Volume 94.1 fL (83.0-100.0); Mean Platelet Volume 9.4 fL (9.4-12.4); Platelet Count 208 K/mcL (140-400); Red Blood Count 3.38 M/mcL (4.19-5.50); Red Cell Distribution Width 13.7 % (11.5-14.5); White Blood Count 9.1 K/mcL (4.3-11.1)
[2021-06-03 03:17] LABS: Albumin 4.1 g/dL (3.5-5.7); Albumin/Globulin Ratio 1.5 (1.1-2.2); Bilirubin,Total 1.1 mg/dL (0.3-1.0); Calcium 9.8 mg/dL (8.6-10.3); Globulin 2.7 g/dL (2.4-3.5); Potassium 3.9 mEq/L (3.5-5.1); Total Protein 6.8 g/dL (6.4-8.9)
[2021-06-03] MEDS: *HR* Heparin 5,000 UNIT/ML VIAL SQ SCH (05:32)
[2021-06-03] MEDS ORDERED: carvediloL 6.25 MG TABLET PO SCH (08:00)
[2021-06-03] MEDS ORDERED: lisinopriL 10 MG TABLET PO SCH (09:00)
[2021-06-03] MEDS: Aspirin Enteric Coated 81 MG Tablet PO SCH (09:11)
[2021-06-03] MEDS: Gabapentin 300 MG CAPSULE PO SCH (09:11)
[2021-06-03] MEDS: Cholecalciferol (D-3) 1,000 UNIT (25MCG) TABLET PO SCH (09:11)
[2021-06-03] MEDS: Folic Acid 1 MG TABLET PO SCH (09:11)
[2021-06-03] MEDS: Insulin LISPRO 300 UNITS/3 ML VIAL SUBQ SCH (09:12)
[2021-06-03] MEDS: Furosemide 20 MG/2 ML VIAL IVP SCH (09:12)
[2021-06-03] MEDS: Febuxostat [Uloric] 40 MG Tablet PO SCH (09:18)
[2021-06-03 11:35] VITALS: BP 154/65; PULSE 71; TEMP 98.1; O2SAT 98
== END 2021-06-03 13:06 | disposition home or self-care (01) ==
LOC: EMEROOARM 08:08 → 3BNU 08:08 → SUATTDRO 10:24 → 3BNU 11:49
PROVIDERS: ADMIT General Practice; ATTEND Registered Nurse